=== PATIENT | female | born 1965 | race Two or more races ===

== ENCOUNTER → 2018-01-20 | Outpatient (CLI) | payer OTHER | END | disposition home or self-care (01) | LOC: WOUND 10:12 | PROVIDERS: ATTEND Internal Medicine | DX: E11.621 Type 2 diabetes mellitus with foot ulcer (principal); L97.522 Non-pressure chronic ulcer of other part of left foot with fat layer exposed; L84 Corns and callosities; E11.65 Type 2 diabetes mellitus with hyperglycemia; E78.5 Hyperlipidemia, unspecified | CPT/HCPCS: 11042; 99215 ==

== ENCOUNTER 2018-08-10 20:12 | Emergency (ER) | payer OTHER ==
[~2018-08-10] VITALS: Ht 152.4 cm; Wt 68.0 kg
[2018-08-10 20:14] VITALS: BP 109/64
--- NOTE | 2018-08-10 20:33 | NUR ---
PT PRESENTED WITH HIGH BLOOD SUGAR, TRIAGE FSBS- 320, SON STATED "SHE HAS NOT TAKEN HER INSULIN IN THREE WEEKS. THERE IS A CONFLICT WITH HER INSURANCE. WE CHECKED IT AT HOME AND IT WAS 470." PT REPORTS SHE HAS NOT BEEN EATING, POOR APPETITE X 10 DAYS. PT RESTING ON SEVEN, SON AT BEDSIDE, CALL LIGHT WITHIN REACH
== END 2018-08-10 20:59 | disposition home or self-care (01) ==
LOC: ED 20:57
DX: E11.65 Type 2 diabetes mellitus with hyperglycemia (principal); Z76.0 Encounter for issue of repeat prescription
CPT/HCPCS: 82962; 99283

== ENCOUNTER 2018-08-13 14:26 | Inpatient (IN) | payer OTHER ==
[~2018-08-13] VITALS: Ht 162.6 cm; Wt 62.6 kg
[2018-08-13 14:58] LABS: MEAN CORPUSCULAR HEMOGLOBIN 30.2 pg (27.0-34.8); MEAN CORPUSCULAR HGB CONC 33.9 g/dL (32.4-35.8); MEAN PLATELET VOLUME 6.9 fL (7.4-10.4); PLATELET COUNT 611 x10^3/uL (130-400); RED BLOOD COUNT 4.12 x10^6/uL (3.82-5.3); RED CELL DISTRIBUTION WIDTH 12.7 % (9.6-15.2)
[2018-08-13] MEDS ORDERED: VANCOMYCIN PER PHARMACY IV ONE (15:00)
[2018-08-13] MEDS ORDERED: DIPH,PERTUSS(ACELL),TET VAC/PF 0.5 ML IM-VACC ONE ×2 (15:00→16:33)
[2018-08-13 15:08] LABS: ALANINE AMINOTRANSFERASE 11 U/L (12-78); ALBUMIN 2.4 g/dL (3.4-5.0); ANION GAP 13 mmol/L (5-15); CALCIUM 8.5 mg/dL (8.5-10.1); CHLORIDE 95 mmol/L (98-107); CREATININE 1.54 mg/dL (0.55-1.02)
[2018-08-13 15:10] LABS: ALKALINE PHOSPHATASE 166 U/L (45-117); BILIRUBIN,TOTAL 0.7 mg/dL (0.2-1.0); TOTAL PROTEIN 7.6 g/dL (6.4-8.2)
[2018-08-13 15:27] LABS: MD YES
[2018-08-13 15:31] LABS: BAND#(MANUAL) 2.61 x10^3/uL; BANDS%(MANUAL) 9 % (0-7); LYMPH#(MANUAL) 1.74 x10^3/uL (1-3.4); LYMPHS% (MANUAL) 6 % (22-44); MONOS#(MANUAL) 1.45 x10^3/uL (0.3-2.7); MONOS% (MANUAL) 5 % (2-9); SEGS% (MANUAL) 80 % (42-75)
[2018-08-13 15:32] LABS: <PLATELET ESTIMATE> INCREASED; <PLT MORPHOLOGY> NORMAL PLT MORPH; <RBC MORPHOLOGY> NORMAL; PMNS WITH VACUOLES 1+; TOXIC GRAN 1+
[2018-08-13 16:00] LABS: HCT (SEDRATE) 36.7 % (34.6-47.8)
[2018-08-13] MEDS ORDERED: VANCOMYCIN 1,300 MG in SODIUM CHLORIDE 0.9% 250 ML IV ONE (16:00)
[2018-08-13] MEDS: SODIUM CHLORIDE 0.9% 1,000 ML IV SCH ×2 (16:37→17:34)
--- NOTE | 2018-08-13 16:49 | NUR ---
[facility] TELEPHONE HAND-OFF REPORT TO CESAR JOHANSEN.
[2018-08-13] MEDS ORDERED: INSU100C SQ-INSULIN (16:57)
[2018-08-13] MEDS ORDERED: INSU100V8 SQ (16:59)
[2018-08-13] MEDS ORDERED: DEXTROSE 4 GM TAB.CHEW PO PRN (17:00)
[2018-08-13] MEDS ORDERED: VANCOMYCIN PER PHARMACY MC PRN (17:00)
[2018-08-13] MEDS ORDERED: ONDANSETRON ODT 4 MG PO PRN (17:00)
[2018-08-13] MEDS ORDERED: morphine SULFATE 10 MG/ML, 1ML IVPush PRN (17:00)
[2018-08-13] MEDS ORDERED: LABETALOL 5MG/ML, 20ML IVPush PRN (17:00)
[2018-08-13] MEDS ORDERED: DEXTROSE 50%, 50ML SYRINGE IVPush PRN (17:00)
[2018-08-13] MEDS ORDERED: ACETAMINOPHEN 325 MG TABLET PO PRN (17:00)
[2018-08-13] MEDS ORDERED: GLUCAGON 1 MG IM PRN (17:00)
[2018-08-13] MEDS ORDERED: hydrALAzine 20 MG/ML, 1ML IVPush PRN (17:00)
[2018-08-13] MEDS ORDERED: LISI2.5T PO (17:04)
[2018-08-13] MEDS ORDERED: INSU100I28 SQ-INSULIN (17:05)
[2018-08-13] MEDS ORDERED: ATOR40TA PO (17:05)
[2018-08-13] MEDS ORDERED: ATOR10TA PO (17:05)
[2018-08-13 17:21] LABS: HEMOGLOBIN A1C 10.8 % (4.2-6.3)
[2018-08-13] MEDS ORDERED: PHARMACOKINETIC CONSULTATION MC ONE (18:00)
[2018-08-13] MEDS ORDERED: PHARMACOKINETIC MONITORING MC PRN (18:00)
[2018-08-13 18:03] VITALS: BP 92/50
[2018-08-13] MEDS: INSULIN LISPRO 100 UNITS/ML, PEN SQ-INSULIN SCH ×2 (18:27→20:30)
[2018-08-13] MEDS: CLINDAMYCIN PMX 900MG/50ML 50 ML IV SCH (18:30)
[2018-08-13 19:47] VITALS: BP 90/56
[2018-08-13 20:02] VITALS: BP 96/50
[2018-08-13] MEDS: AMPICILLIN/SULBACTAM 3 GM in SODIUM CHLORIDE 0.9% 100 ML IV SCH (20:03)
[2018-08-13 20:08] LABS: CULTURE INDICATED? YES; MICROSCOPIC INDICATED
[2018-08-13] MEDS: SODIUM CHLORIDE FLUSH 10ML SYR IVF SCH (20:30)
[2018-08-13] MEDS ORDERED: MAGNESIUM SULFATE PMX 2GM/50ML 50 ML IV ONE (20:30)
[2018-08-13] MEDS ORDERED: INSULIN LISPRO 100 UNITS/ML, PEN SQ-INSULIN SCH (21:00)
[2018-08-14] MEDS: AMPICILLIN/SULBACTAM 3 GM in SODIUM CHLORIDE 0.9% 100 ML IV SCH ×4 (01:47→19:35)
[2018-08-14 02:35] VITALS: BP 93/56
[2018-08-14] MEDS: SODIUM CHLORIDE 0.9% 1,000 ML IV SCH ×5 (02:37→23:19)
[2018-08-14] MEDS: CLINDAMYCIN PMX 900MG/50ML 50 ML IV SCH ×5 (03:55→23:18)
[2018-08-14 05:59] LABS: MEAN CORPUSCULAR HEMOGLOBIN 30.5 pg (27.0-34.8); MEAN CORPUSCULAR HGB CONC 34.4 g/dL (32.4-35.8); MEAN CORPUSCULAR VOLUME 88.8 fL (80-100); MEAN PLATELET VOLUME 7.1 fL (7.4-10.4); PLATELET COUNT 520 x10^3/uL (130-400); RED BLOOD COUNT 3.69 x10^6/uL (3.82-5.3); RED CELL DISTRIBUTION WIDTH 12.6 % (9.6-15.2)
[2018-08-14 06:06] LABS: CHLORIDE 98 mmol/L (98-107)
[2018-08-14 06:23] LABS: ANION GAP 11 mmol/L (5-15); CALCIUM 7.9 mg/dL (8.5-10.1); CREATININE 0.89 mg/dL (0.55-1.02)
[2018-08-14 06:29] LABS: MD YES
[2018-08-14 06:31] LABS: BAND#(MANUAL) 4.37 x10^3/uL; BANDS%(MANUAL) 15 % (0-7); LYMPH#(MANUAL) 1.75 x10^3/uL (1-3.4); LYMPHS% (MANUAL) 6 % (22-44); MONOS#(MANUAL) 2.04 x10^3/uL (0.3-2.7); MONOS% (MANUAL) 7 % (2-9); SEG#(MANUAL) 20.95 x10^3/uL (1.8-6.8); SEGS% (MANUAL) 72 % (42-75)
[2018-08-14 06:32] LABS: <PLATELET ESTIMATE> INCREASED; <PLT MORPHOLOGY> NORMAL PLT MORPH; <RBC MORPHOLOGY> NORMAL; TOXIC GRAN 1+
[2018-08-14 07:55] VITALS: BP 98/59
[2018-08-14] MEDS: INSULIN LISPRO 100 UNITS/ML, PEN SQ-INSULIN SCH ×4 (08:39→21:00)
[2018-08-14] MEDS: SODIUM CHLORIDE FLUSH 10ML SYR IVF SCH ×2 (08:40→21:00)
[2018-08-14] MEDS: VANCOMYCIN 1,300 MG in SODIUM CHLORIDE 0.9% 250 ML IV SCH (10:06)
[2018-08-14 14:34] VITALS: BP 94/56
[2018-08-14 19:17] VITALS: BP 93/53
[2018-08-14] MEDS ORDERED: FENTANYL PF 250 MCG/5ML ONE (21:03)
[2018-08-14] MEDS ORDERED: ONDANSETRON 2MG/ML, 2ML ONE (21:30)
[2018-08-14] MEDS ORDERED: DEXAMETHASONE 4 MG/ML, 1ML ONE (21:30)
[2018-08-14] MEDS ORDERED: PROPOFOL 10 MG/ML, 20ML ONE (21:30)
[2018-08-14] MEDS ORDERED: ROCURONIUM 10MG/ML,5ML ONE (21:30)
[2018-08-14] MEDS ORDERED: SUCCINYLCHOLINE 20 MG/ML, 10ML ONE (21:30)
[2018-08-14] MEDS ORDERED: MIDAZOLAM 1 MG/ML, 2ML ONE (21:31)
[2018-08-14] MEDS ORDERED: ONDANSETRON ODT 8 MG PO PRN (22:00)
[2018-08-14] MEDS ORDERED: MEPERIDINE/PF 25MG/0.5ML IVPush PRN (22:00)
[2018-08-14] MEDS ORDERED: HYDROmorphone 2 MG/ML, 1ML IVPush PRN (22:00)
[2018-08-14] MEDS ORDERED: DIAZEPAM 5 MG/ML, 2ML IVPush PRN (22:00)
[2018-08-14] MEDS ORDERED: OXYcodone 5 MG/5 ML ORAL.SOL UDC PO PRN (22:00)
[2018-08-14] MEDS ORDERED: hydrALAzine 20 MG/ML, 1ML IV PRN (22:00)
[2018-08-14] MEDS ORDERED: FENTANYL PF 100 MCG/2ML IV PRN (22:00)
[2018-08-14] MEDS ORDERED: LABETALOL 5MG/ML, 20ML IV PRN (22:00)
[2018-08-14] MEDS ORDERED: ACETAMINOPHEN 325 MG TABLET PO PRN (22:00)
[2018-08-14] MEDS ORDERED: ONDANSETRON 2MG/ML, 2ML IV PRN (22:00)
[2018-08-15 00:22] VITALS: BP 116/67
[2018-08-15] MEDS: AMPICILLIN/SULBACTAM 3 GM in SODIUM CHLORIDE 0.9% 100 ML IV SCH ×4 (02:03→20:18)
[2018-08-15] MEDS: VANCOMYCIN 1,300 MG in SODIUM CHLORIDE 0.9% 250 ML IV SCH (04:41)
[2018-08-15] MEDS: INSULIN LISPRO 100 UNITS/ML, PEN SQ-INSULIN SCH ×4 (07:25→21:00)
[2018-08-15 07:55] VITALS: BP 102/65
[2018-08-15] MEDS: CLINDAMYCIN PMX 900MG/50ML 50 ML IV SCH (08:34)
[2018-08-15 09:04] LABS: ALANINE AMINOTRANSFERASE 9 U/L (12-78); ALBUMIN 1.7 g/dL (3.4-5.0); ANION GAP 11 mmol/L (5-15); CALCIUM 8.3 mg/dL (8.5-10.1); CHLORIDE 106 mmol/L (98-107); CREATININE 0.72 mg/dL (0.55-1.02)
[2018-08-15 09:07] LABS: ALKALINE PHOSPHATASE 176 U/L (45-117); BILIRUBIN,TOTAL 0.5 mg/dL (0.2-1.0); TOTAL PROTEIN 6.3 g/dL (6.4-8.2)
[2018-08-15 09:14] LABS: MEAN CORPUSCULAR HEMOGLOBIN 29.6 pg (27.0-34.8); MEAN CORPUSCULAR HGB CONC 33.4 g/dL (32.4-35.8); MEAN CORPUSCULAR VOLUME 88.9 fL (80-100); RED BLOOD COUNT 4.35 x10^6/uL (3.82-5.3); RED CELL DISTRIBUTION WIDTH 13.2 % (9.6-15.2)
[2018-08-15 09:30] LABS: MD YES; MEAN PLATELET VOLUME 7.3 fL (7.4-10.4); PLATELET COUNT 627 x10^3/uL (130-400)
[2018-08-15] MEDS ORDERED: INSULIN GLARGINE 100 UNITS/ML, PEN SQ-INSULIN SCH (09:30)
[2018-08-15 09:31] LABS: BAND#(MANUAL) 0.25 x10^3/uL; BANDS%(MANUAL) 1 % (0-7); LYMPHS% (MANUAL) 4 % (22-44); MONOS#(MANUAL) 0.25 x10^3/uL (0.3-2.7); MONOS% (MANUAL) 1 % (2-9); SEGS% (MANUAL) 94 % (42-75)
[2018-08-15 09:32] LABS: <RBC MORPHOLOGY> NORMAL
[2018-08-15 09:33] LABS: <PLATELET ESTIMATE> INCREASED; <PLT MORPHOLOGY> NORMAL PLT MORPH; PMNS WITH VACUOLES 1+; TOXIC GRAN 1+
[2018-08-15] MEDS: SODIUM CHLORIDE 0.9% 1,000 ML IV SCH ×3 (10:42→21:00)
[2018-08-15] MEDS ORDERED: PNEUMOC 13-VALENT VACC, 0.5 ML IM-VACC ONE (13:00)
[2018-08-15 14:35] VITALS: BP 96/62
[2018-08-15] MEDS: SODIUM CHLORIDE FLUSH 10ML SYR IVF SCH ×2 (16:00→21:01)
[2018-08-15 18:45] VITALS: BP 95/55
[2018-08-16 00:37] VITALS: BP 94/60
[2018-08-16] MEDS: AMPICILLIN/SULBACTAM 3 GM in SODIUM CHLORIDE 0.9% 100 ML IV SCH ×4 (01:56→19:50)
[2018-08-16] MEDS: SODIUM CHLORIDE 0.9% 1,000 ML IV SCH ×2 (05:14→13:24)
[2018-08-16] MEDS: INSULIN LISPRO 100 UNITS/ML, PEN SQ-INSULIN SCH ×4 (07:16→21:39)
[2018-08-16] MEDS: SODIUM CHLORIDE FLUSH 10ML SYR IVF SCH ×2 (07:17→21:39)
[2018-08-16 07:34] VITALS: BP 110/56
[2018-08-16] MEDS: INSULIN GLARGINE 100 UNITS/ML, PEN SQ-INSULIN SCH ×2 (08:54→21:38)
[2018-08-16] MEDS ORDERED: INSULIN GLARGINE 100 UNITS/ML, PEN SQ-INSULIN SCH (09:00)
[2018-08-16 13:37] VITALS: BP 106/64
[2018-08-16 19:02] VITALS: BP 108/56
[2018-08-16] MEDS: OXYcodone/APAP 5/325MG TABLET PO PRN (21:37)
[2018-08-17] MEDS: SODIUM CHLORIDE 0.9% 1,000 ML IV SCH ×3 (00:23→21:05)
[2018-08-17] MEDS: AMPICILLIN/SULBACTAM 3 GM in SODIUM CHLORIDE 0.9% 100 ML IV SCH ×4 (01:30→19:51)
[2018-08-17 01:52] VITALS: BP 125/63
[2018-08-17 06:03] LABS: ANION GAP 6 mmol/L (5-15); CALCIUM 7.4 mg/dL (8.5-10.1); CHLORIDE 113 mmol/L (98-107)
[2018-08-17 06:10] LABS: BASOPHILS # (AUTO) 0.05 x10^3/uL (0-0.1); BASOPHILS % (AUTO) 0 % (0-1); EOSINOPHILS # (AUTO) 0.16 x10^3/uL (0-0.4); EOSINOPHILS % (AUTO) 1 % (1-7); LYMPHOCYTES # (AUTO) 2.84 x10^3/uL (1-3.4); LYMPHOCYTES % (AUTO) 25 % (22-44); MD NO; MEAN CORPUSCULAR HEMOGLOBIN 30.7 pg (27.0-34.8); MEAN CORPUSCULAR HGB CONC 34.3 g/dL (32.4-35.8); MEAN CORPUSCULAR VOLUME 89.3 fL (80-100); MEAN PLATELET VOLUME 6.7 fL (7.4-10.4); MONOCYTES # (AUTO) 1.13 x10^3/uL (0.2-0.8); MONOCYTES % (AUTO) 10 % (2-9); NEUTROPHILS # (AUTO) 7.36 x10^3/uL (1.8-6.8); NEUTROPHILS % (AUTO) 64 % (42-75); PLATELET COUNT 598 x10^3/uL (130-400); RED BLOOD COUNT 3.43 x10^6/uL (3.82-5.3); RED CELL DISTRIBUTION WIDTH 13.5 % (9.6-15.2)
[2018-08-17] MEDS: INSULIN LISPRO 100 UNITS/ML, PEN SQ-INSULIN SCH ×4 (07:00→21:04)
[2018-08-17 07:30] VITALS: BP 136/73
[2018-08-17] MEDS: SODIUM CHLORIDE FLUSH 10ML SYR IVF SCH ×2 (07:43→21:04)
[2018-08-17] MEDS: INSULIN GLARGINE 100 UNITS/ML, PEN SQ-INSULIN SCH ×2 (08:57→21:03)
[2018-08-17] MEDS: OXYcodone/APAP 5/325MG TABLET PO PRN ×2 (11:32→12:01)
[2018-08-17 12:48] VITALS: BP 132/71
[2018-08-17 12:50] VITALS: BP 134/75
[2018-08-17] MEDS: ONDANSETRON 2MG/ML, 2ML IVPush PRN (16:14)
[2018-08-17 18:55] VITALS: BP 122/67
[2018-08-18] MEDS: AMPICILLIN/SULBACTAM 3 GM in SODIUM CHLORIDE 0.9% 100 ML IV SCH ×4 (01:35→20:29)
[2018-08-18 01:56] VITALS: BP 156/73
[2018-08-18] MEDS: SODIUM CHLORIDE 0.9% 1,000 ML IV SCH (06:03)
[2018-08-18 07:07] VITALS: BP 151/71
[2018-08-18] MEDS: INSULIN LISPRO 100 UNITS/ML, PEN SQ-INSULIN SCH ×4 (07:51→21:00)
[2018-08-18] MEDS: SODIUM CHLORIDE FLUSH 10ML SYR IVF SCH ×2 (07:53→21:04)
[2018-08-18] MEDS ORDERED: MAGNESIUM CITRATE 300ML ORAL SOL PO ONE (10:00)
[2018-08-18] MEDS: INSULIN GLARGINE 100 UNITS/ML, PEN SQ-INSULIN SCH ×2 (10:34→21:05)
[2018-08-18 12:45] VITALS: BP 131/70
[2018-08-18 18:47] VITALS: BP 160/77
[2018-08-19 01:45] VITALS: BP 155/78
[2018-08-19] MEDS: AMPICILLIN/SULBACTAM 3 GM in SODIUM CHLORIDE 0.9% 100 ML IV SCH ×4 (01:53→21:34)
[2018-08-19] MEDS: INSULIN LISPRO 100 UNITS/ML, PEN SQ-INSULIN SCH ×4 (06:19→21:35)
[2018-08-19] MEDS: INSULIN GLARGINE 100 UNITS/ML, PEN SQ-INSULIN SCH ×2 (08:00→21:35)
[2018-08-19] MEDS: SODIUM CHLORIDE FLUSH 10ML SYR IVF SCH ×2 (08:00→21:36)
[2018-08-19] MEDS ORDERED: ACETAMINOPHEN 500 MG TABLET PO ONE (10:00)
[2018-08-19] MEDS ORDERED: ONDANSETRON ODT 8 MG PO ONE (10:00)
[2018-08-19] MEDS ORDERED: GABAPENTIN 300 MG CAPSULE PO ONE (10:00)
[2018-08-19] MEDS ORDERED: MEPERIDINE/PF 25MG/0.5ML IVPush PRN (10:30)
[2018-08-19] MEDS ORDERED: FENTANYL PF 100 MCG/2ML IV PRN (10:30)
[2018-08-19] MEDS ORDERED: hydrALAzine 20 MG/ML, 1ML IV PRN (10:30)
[2018-08-19] MEDS ORDERED: LABETALOL 5MG/ML, 20ML IV PRN (10:30)
[2018-08-19] MEDS ORDERED: METOCLOPRAMIDE 5 MG/ML, 2ML IV PRN (10:30)
[2018-08-19] MEDS ORDERED: LORazepam 2 MG/ML, 1ML IVPush PRN (10:30)
[2018-08-19] MEDS ORDERED: OXYcodone 5 MG/5 ML ORAL.SOL UDC PO PRN (10:30)
[2018-08-19] MEDS ORDERED: CEFAZOLIN 1,000 MG ONE (11:38)
[2018-08-19] MEDS ORDERED: LIDOCAINE-MPF 2% ,5ML ONE (11:38)
[2018-08-19] MEDS ORDERED: SUCCINYLCHOLINE 20 MG/ML, 10ML ONE (11:38)
[2018-08-19] MEDS ORDERED: PROPOFOL 10 MG/ML, 20ML ONE (11:38)
[2018-08-19] MEDS ORDERED: MIDAZOLAM 1 MG/ML, 2ML ONE (11:39)
[2018-08-19] MEDS ORDERED: FENTANYL PF 100 MCG/2ML ONE ×2 (11:39→13:45)
[2018-08-19] MEDS: HYDROmorphone 2 MG/ML, 1ML IVPush PRN ×2 (13:21→13:42)
[2018-08-19] MEDS ORDERED: HYDROmorphone 1 MG/ML, 1ML ONE (13:23)
[2018-08-19] MEDS ORDERED: OXYcodone 5 MG/5 ML ORAL.SOL UDC ONE (13:23)
[2018-08-19 14:20] VITALS: BP 141/72
[2018-08-19] MEDS: OXYcodone/APAP 5/325MG TABLET PO PRN ×2 (16:59→21:34)
[2018-08-19 18:36] VITALS: BP 97/52
[2018-08-19] MEDS: ONDANSETRON 2MG/ML, 2ML IVPush PRN (21:34)
[2018-08-20 02:00] VITALS: BP 109/66
[2018-08-20] MEDS: OXYcodone/APAP 5/325MG TABLET PO PRN ×3 (02:55→22:15)
[2018-08-20] MEDS: AMPICILLIN/SULBACTAM 3 GM in SODIUM CHLORIDE 0.9% 100 ML IV SCH ×2 (02:55→09:12)
[2018-08-20] MEDS: ONDANSETRON 2MG/ML, 2ML IVPush PRN ×2 (03:02→11:32)
[2018-08-20] MEDS: INSULIN LISPRO 100 UNITS/ML, PEN SQ-INSULIN SCH ×4 (06:32→22:16)
[2018-08-20 07:54] VITALS: BP 115/76
[2018-08-20] MEDS: INSULIN GLARGINE 100 UNITS/ML, PEN SQ-INSULIN SCH ×2 (09:13→22:15)
[2018-08-20] MEDS: SODIUM CHLORIDE FLUSH 10ML SYR IVF SCH ×2 (09:13→22:16)
[2018-08-20] MEDS: CEFTRIAXONE PMX 2GM/50ML 50 ML IV SCH (12:02)
[2018-08-20 14:51] VITALS: BP 115/60
[2018-08-20 19:50] VITALS: BP 139/65
[2018-08-21 01:55] VITALS: BP 126/61
[2018-08-21] MEDS: OXYcodone/APAP 5/325MG TABLET PO PRN ×4 (02:48→23:17)
[2018-08-21] MEDS: INSULIN LISPRO 100 UNITS/ML, PEN SQ-INSULIN SCH ×4 (06:39→23:19)
[2018-08-21 07:37] VITALS: BP 147/70
[2018-08-21] MEDS: SODIUM CHLORIDE FLUSH 10ML SYR IVF SCH ×2 (09:26→23:19)
[2018-08-21] MEDS: ONDANSETRON 2MG/ML, 2ML IVPush PRN (09:26)
[2018-08-21] MEDS: INSULIN GLARGINE 100 UNITS/ML, PEN SQ-INSULIN SCH ×3 (09:27→23:18)
[2018-08-21] MEDS: CEFTRIAXONE PMX 2GM/50ML 50 ML IV SCH (11:49)
[2018-08-21 12:26] VITALS: BP 132/64
[2018-08-21] MEDS ORDERED: POLYETHYLENE GLYCOL 17 GM PACKET PO PRN (12:30)
[2018-08-21] MEDS: MAGNESIUM HYDROXIDE 8%, 30ML UDC PO PRN (16:44)
[2018-08-21 18:28] VITALS: BP 148/71
[2018-08-21] MEDS ORDERED: INSULIN GLARGINE 100 UNITS/ML, PEN SQ-INSULIN SCH (21:00)
[2018-08-22 00:28] VITALS: BP 155/78
[2018-08-22] MEDS: OXYcodone/APAP 5/325MG TABLET PO PRN ×3 (04:14→19:41)
[2018-08-22] MEDS: INSULIN LISPRO 100 UNITS/ML, PEN SQ-INSULIN SCH ×4 (07:40→20:43)
[2018-08-22 08:05] VITALS: BP 123/70
[2018-08-22] MEDS: MAGNESIUM HYDROXIDE 8%, 30ML UDC PO PRN (09:24)
[2018-08-22] MEDS: SODIUM CHLORIDE FLUSH 10ML SYR IVF SCH ×2 (09:24→20:48)
[2018-08-22] MEDS: INSULIN GLARGINE 100 UNITS/ML, PEN SQ-INSULIN SCH ×2 (09:25→20:42)
[2018-08-22] MEDS: CEFTRIAXONE PMX 2GM/50ML 50 ML IV SCH (11:37)
[2018-08-22] MEDS ORDERED: MAGNESIUM CITRATE 300ML ORAL SOL PO PRN (12:30)
[2018-08-22] MEDS ORDERED: BISACODYL 10 MG SUPP PR PRN (12:30)
[2018-08-22 12:59] VITALS: BP 130/69
[2018-08-22 18:58] VITALS: BP 142/59
[2018-08-23 02:31] VITALS: BP 129/60
[2018-08-23] MEDS: OXYcodone/APAP 5/325MG TABLET PO PRN ×4 (03:17→21:03)
[2018-08-23 05:49] LABS: BASOPHILS # (AUTO) 0.05 x10^3/uL (0-0.1); BASOPHILS % (AUTO) 1 % (0-1); EOSINOPHILS # (AUTO) 0.14 x10^3/uL (0-0.4); EOSINOPHILS % (AUTO) 1 % (1-7); LYMPHOCYTES % (AUTO) 33 % (22-44); MD NO; MEAN CORPUSCULAR HEMOGLOBIN 30.1 pg (27.0-34.8); MEAN CORPUSCULAR VOLUME 88.5 fL (80-100); MEAN PLATELET VOLUME 6.1 fL (7.4-10.4); MONOCYTES # (AUTO) 0.73 x10^3/uL (0.2-0.8); MONOCYTES % (AUTO) 7 % (2-9); NEUTROPHILS # (AUTO) 5.94 x10^3/uL (1.8-6.8); NEUTROPHILS % (AUTO) 58 % (42-75); PLATELET COUNT 586 x10^3/uL (130-400); RED BLOOD COUNT 3.42 x10^6/uL (3.82-5.3); RED CELL DISTRIBUTION WIDTH 13.4 % (9.6-15.2)
[2018-08-23 05:56] LABS: CHLORIDE 108 mmol/L (98-107)
[2018-08-23 06:09] LABS: ALANINE AMINOTRANSFERASE 15 U/L (12-78); ALBUMIN 1.7 g/dL (3.4-5.0); ALKALINE PHOSPHATASE 118 U/L (45-117); ANION GAP 4 mmol/L (5-15); BILIRUBIN,TOTAL 0.2 mg/dL (0.2-1.0); CALCIUM 8.3 mg/dL (8.5-10.1); CREATININE 0.52 mg/dL (0.55-1.02); TOTAL PROTEIN 6.5 g/dL (6.4-8.2)
[2018-08-23 06:14] LABS: HCT (SEDRATE) 30.6 % (34.6-47.8)
[2018-08-23 06:45] VITALS: BP 131/58
[2018-08-23] MEDS: INSULIN LISPRO 100 UNITS/ML, PEN SQ-INSULIN SCH ×4 (07:15→21:04)
[2018-08-23] MEDS: SODIUM CHLORIDE FLUSH 10ML SYR IVF SCH ×2 (08:48→21:06)
[2018-08-23] MEDS: INSULIN GLARGINE 100 UNITS/ML, PEN SQ-INSULIN SCH ×2 (08:48→21:04)
[2018-08-23] MEDS: CEFTRIAXONE PMX 2GM/50ML 50 ML IV SCH (11:16)
[2018-08-23] MEDS: HEPARIN 5,000 UNITS/ML, 1ML SQ SCH ×2 (11:16→20:05)
[2018-08-23] MEDS: MAGNESIUM HYDROXIDE 8%, 30ML UDC PO PRN (11:16)
[2018-08-23 13:50] VITALS: BP 136/74
[2018-08-23 20:25] VITALS: BP 129/65
[2018-08-24 02:18] VITALS: BP 130/70
[2018-08-24] MEDS: OXYcodone/APAP 5/325MG TABLET PO PRN ×3 (03:30→20:17)
[2018-08-24] MEDS: HEPARIN 5,000 UNITS/ML, 1ML SQ SCH ×3 (03:32→20:16)
[2018-08-24] MEDS: INSULIN LISPRO 100 UNITS/ML, PEN SQ-INSULIN SCH ×4 (06:59→21:11)
[2018-08-24 07:30] VITALS: BP 127/77
[2018-08-24] MEDS ORDERED: ONDA4TAB13 PO (09:14)
[2018-08-24] MEDS ORDERED: ACET325T14 PO (09:14)
[2018-08-24] MEDS ORDERED: OXYC1TAB7 PO (09:14)
[2018-08-24] MEDS ORDERED: POLY17PO5 PO (09:14)
[2018-08-24] MEDS ORDERED: CEFT1FRO2 IV (09:14)
[2018-08-24] MEDS: SODIUM CHLORIDE FLUSH 10ML SYR IVF SCH ×2 (09:18→21:10)
[2018-08-24] MEDS: INSULIN GLARGINE 100 UNITS/ML, PEN SQ-INSULIN SCH ×2 (09:18→21:11)
[2018-08-24] MEDS: CEFTRIAXONE PMX 2GM/50ML 50 ML IV SCH (11:27)
[2018-08-24 14:55] VITALS: BP 124/79
[2018-08-24 21:25] VITALS: BP 135/71
[2018-08-25 02:10] VITALS: BP 138/70
[2018-08-25] MEDS: OXYcodone/APAP 5/325MG TABLET PO PRN ×5 (02:18→22:06)
[2018-08-25] MEDS: HEPARIN 5,000 UNITS/ML, 1ML SQ SCH ×3 (03:43→21:28)
[2018-08-25] MEDS: INSULIN LISPRO 100 UNITS/ML, PEN SQ-INSULIN SCH ×4 (07:00→21:29)
[2018-08-25 07:32] VITALS: BP 132/64
[2018-08-25] MEDS: INSULIN GLARGINE 100 UNITS/ML, PEN SQ-INSULIN SCH ×2 (08:57→21:58)
[2018-08-25] MEDS: SODIUM CHLORIDE FLUSH 10ML SYR IVF SCH ×2 (08:57→21:00)
[2018-08-25] MEDS: CEFTRIAXONE PMX 2GM/50ML 50 ML IV SCH (11:42)
[2018-08-25 14:05] VITALS: BP 122/71
[2018-08-25 19:53] VITALS: BP 140/59
[2018-08-26 00:57] VITALS: BP 133/58
[2018-08-26] MEDS: OXYcodone/APAP 5/325MG TABLET PO PRN ×4 (03:49→19:49)
[2018-08-26] MEDS: HEPARIN 5,000 UNITS/ML, 1ML SQ SCH ×3 (06:21→21:03)
[2018-08-26 06:48] VITALS: BP 133/70
[2018-08-26] MEDS: INSULIN LISPRO 100 UNITS/ML, PEN SQ-INSULIN SCH ×4 (07:00→21:04)
[2018-08-26] MEDS: INSULIN GLARGINE 100 UNITS/ML, PEN SQ-INSULIN SCH ×2 (08:08→21:04)
[2018-08-26] MEDS: SODIUM CHLORIDE FLUSH 10ML SYR IVF SCH ×2 (08:08→21:00)
[2018-08-26] MEDS: CEFTRIAXONE PMX 2GM/50ML 50 ML IV SCH (11:57)
[2018-08-26 13:19] VITALS: BP 97/60
[2018-08-26] MEDS: ONDANSETRON 2MG/ML, 2ML IVPush PRN (13:49)
[2018-08-26 19:10] VITALS: BP 129/60
[2018-08-27 01:42] VITALS: BP 103/66
[2018-08-27] MEDS: OXYcodone/APAP 5/325MG TABLET PO PRN ×4 (03:58→17:57)
[2018-08-27] MEDS: HEPARIN 5,000 UNITS/ML, 1ML SQ SCH ×3 (06:29→21:45)
[2018-08-27] MEDS: INSULIN LISPRO 100 UNITS/ML, PEN SQ-INSULIN SCH ×4 (06:38→21:46)
[2018-08-27] MEDS: INSULIN GLARGINE 100 UNITS/ML, PEN SQ-INSULIN SCH ×2 (09:11→21:46)
[2018-08-27] MEDS: SODIUM CHLORIDE FLUSH 10ML SYR IVF SCH ×2 (09:11→21:00)
[2018-08-27 11:20] VITALS: BP 115/51
[2018-08-27] MEDS: CEFTRIAXONE PMX 2GM/50ML 50 ML IV SCH (12:02)
[2018-08-27 14:20] VITALS: BP 104/47
[2018-08-27 19:56] VITALS: BP 110/60
[2018-08-28] MEDS: OXYcodone/APAP 5/325MG TABLET PO PRN ×5 (00:22→20:48)
[2018-08-28 03:01] VITALS: BP 133/73
[2018-08-28] MEDS: HEPARIN 5,000 UNITS/ML, 1ML SQ SCH ×3 (05:30→20:55)
[2018-08-28] MEDS: INSULIN LISPRO 100 UNITS/ML, PEN SQ-INSULIN SCH ×4 (07:50→20:54)
[2018-08-28] MEDS: INSULIN GLARGINE 100 UNITS/ML, PEN SQ-INSULIN SCH ×2 (07:51→20:55)
[2018-08-28] MEDS: SODIUM CHLORIDE FLUSH 10ML SYR IVF SCH ×2 (07:51→20:55)
[2018-08-28 08:00] VITALS: BP 131/70
[2018-08-28] MEDS: CEFTRIAXONE PMX 2GM/50ML 50 ML IV SCH (11:12)
[2018-08-28 12:26] LABS: BASOPHILS # (AUTO) 0.05 x10^3/uL (0-0.1); BASOPHILS % (AUTO) 1 % (0-1); EOSINOPHILS % (AUTO) 2 % (1-7); HCT (SEDRATE) 31.5 % (34.6-47.8); LYMPHOCYTES % (AUTO) 32 % (22-44); MD NO; MEAN CORPUSCULAR HEMOGLOBIN 29.9 pg (27.0-34.8); MEAN CORPUSCULAR VOLUME 88.1 fL (80-100); MEAN PLATELET VOLUME 6.2 fL (7.4-10.4); MONOCYTES # (AUTO) 0.39 x10^3/uL (0.2-0.8); MONOCYTES % (AUTO) 7 % (2-9); NEUTROPHILS # (AUTO) 3.41 x10^3/uL (1.8-6.8); NEUTROPHILS % (AUTO) 58 % (42-75); PLATELET COUNT 572 x10^3/uL (130-400); RED BLOOD COUNT 3.58 x10^6/uL (3.82-5.3); RED CELL DISTRIBUTION WIDTH 13.9 % (9.6-15.2)
[2018-08-28 12:29] LABS: ALANINE AMINOTRANSFERASE 13 U/L (12-78); ALBUMIN 2.1 g/dL (3.4-5.0); ANION GAP 6 mmol/L (5-15); CALCIUM 8.8 mg/dL (8.5-10.1); CHLORIDE 107 mmol/L (98-107)
[2018-08-28 12:37] LABS: ALKALINE PHOSPHATASE 109 U/L (45-117); BILIRUBIN,TOTAL 0.1 mg/dL (0.2-1.0); CREATININE 0.53 mg/dL (0.55-1.02); TOTAL PROTEIN 7.4 g/dL (6.4-8.2)
[2018-08-28 14:13] VITALS: BP 101/55
[2018-08-28 20:00] VITALS: BP 138/64
[2018-08-29 00:37] VITALS: BP 128/74
[2018-08-29] MEDS: OXYcodone/APAP 5/325MG TABLET PO PRN ×5 (02:15→19:33)
[2018-08-29] MEDS: HEPARIN 5,000 UNITS/ML, 1ML SQ SCH ×3 (05:08→21:18)
[2018-08-29] MEDS: INSULIN LISPRO 100 UNITS/ML, PEN SQ-INSULIN SCH ×4 (07:00→21:19)
[2018-08-29 07:40] VITALS: BP 128/66
[2018-08-29] MEDS: SODIUM CHLORIDE FLUSH 10ML SYR IVF SCH ×2 (09:00→21:19)
[2018-08-29] MEDS: INSULIN GLARGINE 100 UNITS/ML, PEN SQ-INSULIN SCH ×2 (10:20→21:18)
[2018-08-29] MEDS ORDERED: CEFTRIAXONE PMX 2GM/50ML 50 ML IV SCH (11:30)
[2018-08-29 13:10] VITALS: BP 117/63
[2018-08-29 20:10] VITALS: BP 131/72
[2018-08-30] MEDS: OXYcodone/APAP 5/325MG TABLET PO PRN ×5 (03:00→20:35)
[2018-08-30 03:01] VITALS: BP 143/73
[2018-08-30] MEDS: HEPARIN 5,000 UNITS/ML, 1ML SQ SCH ×3 (05:24→20:36)
[2018-08-30] MEDS: INSULIN LISPRO 100 UNITS/ML, PEN SQ-INSULIN SCH ×4 (07:00→20:37)
[2018-08-30 07:32] VITALS: BP 115/71
[2018-08-30] MEDS: INSULIN GLARGINE 100 UNITS/ML, PEN SQ-INSULIN SCH ×2 (08:14→20:37)
[2018-08-30] MEDS: SODIUM CHLORIDE FLUSH 10ML SYR IVF SCH ×2 (08:16→20:38)
[2018-08-30 12:29] VITALS: BP 125/66
[2018-08-30 21:59] VITALS: BP 140/60
[2018-08-31 01:46] VITALS: BP 142/57
[2018-08-31] MEDS: OXYcodone/APAP 5/325MG TABLET PO PRN ×5 (01:54→22:59)
[2018-08-31] MEDS: HEPARIN 5,000 UNITS/ML, 1ML SQ SCH ×3 (05:58→22:46)
[2018-08-31] MEDS: INSULIN LISPRO 100 UNITS/ML, PEN SQ-INSULIN SCH ×4 (07:00→22:46)
[2018-08-31 07:07] VITALS: BP 109/58
[2018-08-31] MEDS: INSULIN GLARGINE 100 UNITS/ML, PEN SQ-INSULIN SCH ×2 (08:18→22:46)
[2018-08-31] MEDS: SODIUM CHLORIDE FLUSH 10ML SYR IVF SCH ×2 (08:18→22:47)
[2018-08-31 13:15] VITALS: BP 133/50
[2018-08-31 19:31] VITALS: BP 114/68
[2018-09-01 01:33] VITALS: BP 128/71
[2018-09-01] MEDS: OXYcodone/APAP 5/325MG TABLET PO PRN ×4 (05:21→20:58)
[2018-09-01] MEDS: INSULIN LISPRO 100 UNITS/ML, PEN SQ-INSULIN SCH ×4 (06:06→20:49)
[2018-09-01] MEDS: HEPARIN 5,000 UNITS/ML, 1ML SQ SCH ×3 (06:18→23:51)
[2018-09-01 06:41] VITALS: BP 111/54
[2018-09-01] MEDS: INSULIN GLARGINE 100 UNITS/ML, PEN SQ-INSULIN SCH ×2 (08:41→20:48)
[2018-09-01] MEDS: SODIUM CHLORIDE FLUSH 10ML SYR IVF SCH ×2 (08:41→21:24)
[2018-09-01 12:38] VITALS: BP 122/59
[2018-09-01 19:41] VITALS: BP 118/60
[2018-09-02] MEDS: OXYcodone/APAP 5/325MG TABLET PO PRN ×5 (01:12→23:04)
[2018-09-02 03:04] VITALS: BP 119/60
[2018-09-02 06:34] VITALS: BP 126/63
[2018-09-02] MEDS: INSULIN LISPRO 100 UNITS/ML, PEN SQ-INSULIN SCH ×4 (07:00→20:47)
[2018-09-02] MEDS: HEPARIN 5,000 UNITS/ML, 1ML SQ SCH ×2 (07:28→15:36)
[2018-09-02] MEDS: INSULIN GLARGINE 100 UNITS/ML, PEN SQ-INSULIN SCH ×2 (09:26→20:47)
[2018-09-02] MEDS: SODIUM CHLORIDE FLUSH 10ML SYR IVF SCH ×2 (09:26→20:47)
[2018-09-02 12:37] VITALS: BP 100/61
[2018-09-02 19:18] VITALS: BP 103/67
[2018-09-03] MEDS: HEPARIN 5,000 UNITS/ML, 1ML SQ SCH ×3 (00:34→16:38)
[2018-09-03 00:55] VITALS: BP 108/70
[2018-09-03] MEDS: OXYcodone/APAP 5/325MG TABLET PO PRN ×3 (05:57→19:47)
[2018-09-03] MEDS: INSULIN LISPRO 100 UNITS/ML, PEN SQ-INSULIN SCH ×4 (07:00→21:05)
[2018-09-03] MEDS: INSULIN GLARGINE 100 UNITS/ML, PEN SQ-INSULIN SCH ×2 (08:28→21:04)
[2018-09-03] MEDS: SODIUM CHLORIDE FLUSH 10ML SYR IVF SCH ×2 (08:29→21:04)
[2018-09-03 13:45] VITALS: BP 103/54
[2018-09-03 21:06] VITALS: BP 134/69
[2018-09-03] MEDS: MAGNESIUM HYDROXIDE 8%, 30ML UDC PO PRN (22:43)
[2018-09-04] MEDS: OXYcodone/APAP 5/325MG TABLET PO PRN ×5 (01:37→21:05)
[2018-09-04] MEDS: HEPARIN 5,000 UNITS/ML, 1ML SQ SCH ×3 (01:37→16:43)
[2018-09-04 02:24] VITALS: BP 139/87
[2018-09-04] MEDS: INSULIN LISPRO 100 UNITS/ML, PEN SQ-INSULIN SCH ×4 (07:00→21:15)
[2018-09-04 07:30] VITALS: BP 109/66
[2018-09-04] MEDS: INSULIN GLARGINE 100 UNITS/ML, PEN SQ-INSULIN SCH ×2 (07:36→21:14)
[2018-09-04] MEDS: SODIUM CHLORIDE FLUSH 10ML SYR IVF SCH ×2 (07:37→21:05)
[2018-09-04 13:20] VITALS: BP 118/64
[2018-09-04 21:20] VITALS: BP 133/78
[2018-09-05] MEDS: HEPARIN 5,000 UNITS/ML, 1ML SQ SCH ×3 (00:59→16:04)
[2018-09-05] MEDS: OXYcodone/APAP 5/325MG TABLET PO PRN ×4 (01:03→21:31)
[2018-09-05 01:43] VITALS: BP 121/59
[2018-09-05] MEDS: MAGNESIUM HYDROXIDE 8%, 30ML UDC PO PRN (06:45)
[2018-09-05] MEDS: INSULIN LISPRO 100 UNITS/ML, PEN SQ-INSULIN SCH ×4 (07:00→21:15)
[2018-09-05 07:11] VITALS: BP 104/52
[2018-09-05] MEDS: ONDANSETRON 2MG/ML, 2ML IVPush PRN (09:02)
[2018-09-05] MEDS: INSULIN GLARGINE 100 UNITS/ML, PEN SQ-INSULIN SCH ×2 (09:10→21:53)
[2018-09-05] MEDS: SODIUM CHLORIDE FLUSH 10ML SYR IVF SCH ×2 (09:10→21:53)
[2018-09-05 15:52] VITALS: BP 98/52
[2018-09-05 21:16] VITALS: BP 121/53
[2018-09-06] MEDS: HEPARIN 5,000 UNITS/ML, 1ML SQ SCH ×3 (00:19→16:06)
[2018-09-06 00:25] VITALS: BP 96/58
[2018-09-06] MEDS: OXYcodone/APAP 5/325MG TABLET PO PRN ×3 (06:27→19:10)
[2018-09-06] MEDS: INSULIN LISPRO 100 UNITS/ML, PEN SQ-INSULIN SCH ×4 (06:31→20:05)
[2018-09-06 07:31] VITALS: BP 118/55
[2018-09-06] MEDS: INSULIN GLARGINE 100 UNITS/ML, PEN SQ-INSULIN SCH ×2 (08:14→20:04)
[2018-09-06] MEDS: SODIUM CHLORIDE FLUSH 10ML SYR IVF SCH ×2 (08:21→20:21)
[2018-09-06 14:00] VITALS: BP 106/60
[2018-09-06 19:54] VITALS: BP 121/70
[2018-09-07] MEDS: HEPARIN 5,000 UNITS/ML, 1ML SQ SCH ×2 (01:05→08:44)
[2018-09-07] MEDS: OXYcodone/APAP 5/325MG TABLET PO PRN ×3 (01:05→10:36)
[2018-09-07 01:20] VITALS: BP 122/74
[2018-09-07] MEDS: INSULIN LISPRO 100 UNITS/ML, PEN SQ-INSULIN SCH ×2 (07:00→11:47)
[2018-09-07 07:10] VITALS: BP 106/67
[2018-09-07] MEDS: INSULIN GLARGINE 100 UNITS/ML, PEN SQ-INSULIN SCH (08:45)
[2018-09-07] MEDS: SODIUM CHLORIDE FLUSH 10ML SYR IVF SCH (08:49)
[2018-09-07] MEDS ORDERED: INSU100I13 SQ-INSULIN (09:39)
[2018-09-07 12:54] VITALS: BP 95/58
== END 2018-09-07 15:02 | DRG 853 ==
LOC: ED 14:59 → EDIP 15:50 → 4NOR 17:00
PROVIDERS: ADMIT Internal Medicine; ATTEND Internal Medicine
PROC: 0Y6N0Z0 Detachment at Left Foot, Complete, Open Approach (ICD-10-PCS; principal; 2018-08-14 19:15)
PROC: 0Y6J0Z1 Detachment at Left Lower Leg, High, Open Approach (ICD-10-PCS; 2018-08-19)
DX: A40.8 Other streptococcal sepsis (principal); A48.0 Gas gangrene; E43 Unspecified severe protein-calorie malnutrition; E87.1 Hypo-osmolality and hyponatremia; M86.172 Other acute osteomyelitis, left ankle and foot; N17.9 Acute kidney failure, unspecified; N39.0 Urinary tract infection, site not specified; E11.52 Type 2 diabetes mellitus with diabetic peripheral angiopathy with gangrene; E11.621 Type 2 diabetes mellitus with foot ulcer; E11.628 Type 2 diabetes mellitus with other skin complications; E11.65 Type 2 diabetes mellitus with hyperglycemia; E11.69 Type 2 diabetes mellitus with other specified complication; E78.5 Hyperlipidemia, unspecified; E83.42 Hypomagnesemia; I10 Essential (primary) hypertension; K59.00 Constipation, unspecified; L97.509 Non-pressure chronic ulcer of other part of unspecified foot with unspecified severity; L30.9 Dermatitis, unspecified; Z23 Encounter for immunization; S92.343A Displaced fracture of fourth metatarsal bone, unspecified foot, initial encounter for closed fracture; Z79.4 Long term (current) use of insulin; Z79.899 Other long term (current) drug therapy; Z68.23 Body mass index [BMI] 23.0-23.9, adult
CPT/HCPCS: 0399T; 36415; 71045; 74018; 80048; 80053; 81001; 82962; 83036; 83605; 83735; 84100; 84443; 85025; 85651; 86140; 87040; 87070; 87075; 87077; 87086; 87176; 87181; 87205; 88307; 88311; 90471; 90656; 90715; 93005; 93306; 96374; G0378; J0295; J0690; J0696; J1100; J1170; J1644; J2250; J2405; J2704; J3010; J3370; J3490; Q0162; G0009; J0330; J1815; J2270; J3475; J7030; J7050

== ENCOUNTER 2019-06-20 20:16 | Emergency (ER) | payer OTHER ==
[~2019-06-20] VITALS: Ht 170.2 cm; Wt 71.0 kg
[~2019-06-20 20:16] MED LIST: ACET325T14 PO; ATOR10TA PO; ATOR40TA PO; CEFT1FRO2 IV; INSU100C SQ-INSULIN; INSU100I13 SQ-INSULIN; INSU100I28 SQ-INSULIN; INSU100V8 SQ; LISI2.5T PO; ONDA4TAB13 PO; OXYC1TAB7 PO; POLY17PO5 PO
--- NOTE | 2019-06-20 20:48 | NUR ---
THIS IS A 53 YO FEMALE COMING IN FOR ABDOMINAL PAIN LOCATED IN BOTH LOWER QUADRANTS THIS MORNING. PT C/O BRIGHT RED BLOOD IN STOOL SINCE THIS MORNING. PT STATES THAT THE PAIN HAS RESOLVED BUT SHE IS CONCERNED ABOUT THE BLOOD IN HER STOOL. PATIENT IS A&OX4, MEDICAL HX CONSISTS OF HTN AND DM, ONLY SURGERY IS BKA TO LEFT LEG. DENIES N/V, CURRENTLY DOES NOT HAVE PAIN. PATIENT PLACED ON CONTINUOUS SPO2 AT 96%, CYCLE BP Q1HR. CALL LIGHT IN REACH, DENIES NEEDS AT THIS TIME.
[2019-06-20 21:31] LABS: BASOPHILS # (AUTO) 0.02 x10^3/uL (0-0.1); BASOPHILS % (AUTO) 0 % (0-1); EOSINOPHILS # (AUTO) 0.05 x10^3/uL (0-0.4); EOSINOPHILS % (AUTO) 1 % (1-7); LYMPHOCYTES # (AUTO) 1.97 x10^3/uL (1-3.4); LYMPHOCYTES % (AUTO) 20 % (22-44); MD NO; MEAN CORPUSCULAR HEMOGLOBIN 29.8 pg (27.0-34.8); MEAN CORPUSCULAR VOLUME 90.4 fL (80-100); MEAN PLATELET VOLUME 7.3 fL (7.4-10.4); MONOCYTES # (AUTO) 0.61 x10^3/uL (0.2-0.8); MONOCYTES % (AUTO) 6 % (2-9); NEUTROPHILS # (AUTO) 7.11 x10^3/uL (1.8-6.8); NEUTROPHILS % (AUTO) 73 % (42-75); PLATELET COUNT 316 x10^3/uL (130-400); RED BLOOD COUNT 4.15 x10^6/uL (3.82-5.3); RED CELL DISTRIBUTION WIDTH 13.2 % (9.6-15.2)
--- NOTE | 2019-06-20 21:34 | NUR ---
PATIENT AMBULATED TO BATHROOM, GAIT STEADY WITH WALKER. STATES "THERE WAS BLOOD IN THE TOILET, BUT I DIDN'T POOP". PATIENT BACK ON [place], PLACED BACK ON CONTINUOUS SPO2 AND CYCLE BP Q1HR.
[2019-06-20 21:39] LABS: ALANINE AMINOTRANSFERASE 15 U/L (12-78); ALBUMIN 3.1 g/dL (3.4-5.0); ANION GAP 5 mmol/L (5-15); CALCIUM 8.5 mg/dL (8.5-10.1); CHLORIDE 106 mmol/L (98-107); CREATININE 0.51 mg/dL (0.55-1.02)
[2019-06-20 21:41] LABS: ALKALINE PHOSPHATASE 76 U/L (45-117); BILIRUBIN,TOTAL 0.4 mg/dL (0.2-1.0); TOTAL PROTEIN 6.7 g/dL (6.4-8.2)
--- NOTE | 2019-06-20 22:36 | NUR ---
COMMODE PLACED IN ROOM, PATIENT UP TO COMMODE TO TRY TO PROVIDE STOOL SAMPLE
[2019-06-20] MEDS ORDERED: ONDANSETRON ODT 4 MG ONE (22:38)
[2019-06-20 22:40] VITALS: BP 151/69
[2019-06-20] MEDS ORDERED: ONDANSETRON ODT 4 MG PO ONE (23:00)
--- NOTE | 2019-06-20 23:00 | NUR ---
PATIENT MEDICATED PER EMAR, STOOL SAMPLE COLLECTED
--- NOTE | 2019-06-20 23:52 | NUR ---
PATIENT SLEEPING, RESPIRATIONS EVEN AND UNLABORED. CALL LIGHT IN REACH.
--- NOTE | 2019-06-21 00:25 | NUR ---
pt resting in room. no acute distress noted. vs stable. waiting for stool samples to come back
[2019-06-21 00:40] LABS: CLOSTRIDIUM DIFFICILE ANTIGEN NEGATIVE; CLOSTRIDIUM DIFFICILE TOXIN NEGATIVE (Negative)
== END 2019-06-21 00:37 | disposition home or self-care (01) ==
LOC: ED 22:50
DX: K62.5 Hemorrhage of anus and rectum (principal); E11.65 Type 2 diabetes mellitus with hyperglycemia; R19.7 Diarrhea, unspecified; R10.30 Lower abdominal pain, unspecified
CPT/HCPCS: 36415; 80053; 82962; 85025; 87046; 87324; 87427; 89055; 99283; Q0162

== ENCOUNTER 2020-04-04 17:34 | Emergency (ER) | payer MEDICAID, OTHER ==
[~2020-04-04] VITALS: Ht 160 cm; Wt 76.4 kg
[2020-04-04 19:05] LABS: BASOPHILS # (AUTO) 0.04 x10^3/uL (0-0.1); BASOPHILS % (AUTO) 0 % (0-1); EOSINOPHILS # (AUTO) 0.24 x10^3/uL (0-0.4); EOSINOPHILS % (AUTO) 3 % (1-7); LYMPHOCYTES # (AUTO) 2.38 x10^3/uL (1-3.4); LYMPHOCYTES % (AUTO) 25 % (22-44); MD NO; MEAN CORPUSCULAR HEMOGLOBIN 30.8 pg (27.0-34.8); MEAN CORPUSCULAR HGB CONC 33.6 g/dL (32.4-35.8); MEAN PLATELET VOLUME 7.3 fL (7.4-10.4); MONOCYTES # (AUTO) 0.44 x10^3/uL (0.2-0.8); MONOCYTES % (AUTO) 5 % (2-9); NEUTROPHILS # (AUTO) 6.61 x10^3/uL (1.8-6.8); NEUTROPHILS % (AUTO) 68 % (42-75); PLATELET COUNT 339 x10^3/uL (130-400); RED BLOOD COUNT 4.55 x10^6/uL (3.82-5.3)
[2020-04-04 19:06] LABS: HCT (SEDRATE) 41.9 % (34.6-47.8)
[2020-04-04 19:14] LABS: ALANINE AMINOTRANSFERASE 22 U/L (12-78); ALBUMIN 3.9 g/dL (3.4-5.0); ANION GAP 4 mmol/L (5-15); CHLORIDE 106 mmol/L (98-107); CREATININE 0.79 mg/dL (0.55-1.02)
[2020-04-04 19:17] LABS: ALKALINE PHOSPHATASE 84 U/L (45-117); BILIRUBIN,TOTAL 0.3 mg/dL (0.2-1.0); TOTAL PROTEIN 7.9 g/dL (6.4-8.2)
--- NOTE | 2020-04-04 19:27 | NUR ---
REVENUE AUDIT CLERK: PT. TO ROOM FROM LOBBY AT THIS TIME.
--- NOTE | 2020-04-04 19:31 | NUR ---
Task rn: Pt to room at this time w/ wheelchair. States noticed wound on "stump" on L BKA s/t DM II. Noticed wound approximately a week ago. Wound is open and in multiple stages of healing. Pt admits to clear serrous type drainage from wound in last few days. Tender to palpation and mild swelling and redness noted. Denies fevers at home. Denies spreading of redness.
[2020-04-04 19:33] VITALS: BP 155/87
== END 2020-04-04 21:14 | disposition home or self-care (01) ==
LOC: ED 21:13
DX: L03.116 Cellulitis of left lower limb (principal); E11.9 Type 2 diabetes mellitus without complications
CPT/HCPCS: 36415; 80053; 85025; 85651; 86140; 99284

== ENCOUNTER → 2020-10-12 | Outpatient (CLI) | payer MEDICAID | END | disposition home or self-care (01) | LOC: CFH 13:04 | PROVIDERS: ATTEND Family Medicine | DX: N61.1 Abscess of the breast and nipple (principal); N64.4 Mastodynia; L02.91 Cutaneous abscess, unspecified | CPT/HCPCS: 76642; 77062; 77066; G0279 ==